=== PATIENT | female | born 2005 | race Caucasian/White ===

== ENCOUNTER 2024-04-18 20:31 | Emergency (ER) | payer BC, SELFPAY ==
[2024-04-18 20:37] VITALS: BP 124/71; PULSE 83; TEMP 36.9; O2SAT 98; BMI 35.4
[2024-04-18 20:55] LABS: Bilirubin Urine NEGATIVE (NEGATIVE); Blood Urine LARGE (NEGATIVE); Clarity Urine CLEAR (CLEAR); Color Urine YELLOW (YELLOW); Glucose Urine UA NEGATIVE (NEGATIVE); Ketones Urine 15 mg/dL (NEGATIVE); Leukocyte Esterase Urine SMALL (NEGATIVE); Nitrite Urine NEGATIVE (NEGATIVE); Protein Urine 30 mg/dL (NEG/TRACE); Specific Gravity Urine >=1.030 (1.005-1.025); Urobilinogen Urine 0.2 EU/dL (0.2-1.0); pH Urine 5.5 (5.0-9.0)
[2024-04-18 21:02] LABS: Bacteria Urine MODERATE #/HPF (NONE SEEN); Cast Seen? NONE SEEN #/LPF (NONE SEEN); Crystals Seen? None Seen #/HPF (None Seen); Mucus Urine TRACE (NONE SEEN); RBC Urine 20-50 #/HPF (0-2); Squamous Epithelial Cell Urine MANY #/LPF (NONE/RARE); Urine Culture Indicated YES
--- NOTE | 2024-04-18 21:17 | ED_ITS ---
HPI - Female Genitourinary General Chief complaint: Urogenital-Female Stated complaint: UTI, 18-weeks Time Seen by Provider: 04/18/24 20:33 Source: patient Mode of arrival: walk-in Limitations: no limitations History of Present Illness HPI Narrative: 18-year-old female presents for pain on urination and pressure in her bladder. She states she is 18 weeks and she has had this her entire . She has not been previously. No gross hematuria or unusual back pain. She states every time she goes to the telephone answering service operator's office they find a UTI and they put her on an antibiotic. She is not on 1 now. No fever. Related Data Home Medications ?Medication ?Instructions ?Recorded ?Confirmed aspirin 81 mg capsule 81 mg PO DAILY 04/18/24 04/18/24 Previous Rx's ?Medication ?Instructions ?Recorded nitrofurantoin 100 mg PO BID 7 days #14 caps 04/18/24 monohydrate/macrocrystals 100 mg capsule (Macrobid) Allergies Allergy/AdvReac Type Severity Reaction Status Date / Time No Known Drug Allergies Allergy Verified 04/18/24 20:42 Review of Systems ROS Narrative A ten point review of systems is negative except as noted above. PFSH PFSH Social History Little interest or pleasure in doing things: not at all Feeling down, depressed, or hopeless: not at all Exam Narrative Exam Narrative: Nurses note and vital signs reviewed and patient is not hypoxic. General: The patient appears well and in no apparent distress. Patient is resting comfortably on cart. Skin: Warm, dry, no pallor noted. There is no rash noted. Head: Normocephalic, atraumatic Eye: Normal conjunctiva, no drainage Ears, Nose, Mouth, and Throat: oral mucosa is moist. Nares patent. Cardiovascular: Regular Rate and Rhythm Respiratory: Patient is in no distress, no accessory muscle use, lungs are clear to auscultation, no wheezing, rales or rhonchi Back: non-tender, no CVA tenderness bilaterally to percussion. GI: Gravid nontender Musculoskeletal: The patient has no evidence of calf tenderness, no pitting edema, symmetrical pulses noted bilaterally Neurological: A&O, normal speech Psychiatric: Cooperative Constitutional Vital Signs, click to edit/add: Last Vital Signs Temp 98.5 F 04/18/24 20:37 Pulse 83 04/18/24 20:37 Resp 18 04/18/24 20:37 BP 124/71 04/18/24 20:37 Pulse Ox 98 04/18/24 20:37 O2 Del Method Room Air 04/18/24 20:37 Course Vital Signs Vital signs: Vital Signs Temperature 98.5 F 04/18/24 20:37 Pulse Rate 83 04/18/24 20:37 Respiratory Rate 18 04/18/24 20:37 Blood Pressure 124/71 04/18/24 20:37 Pulse Oximetry 98 04/18/24 20:37 Oxygen Delivery Method Room Air 04/18/24 20:37 Temperature 98.5 F 04/18/24 20:37 Pulse Rate 83 04/18/24 20:37 Respiratory Rate 18 04/18/24 20:37 Blood Pressure 124/71 04/18/24 20:37 Pulse Oximetry 98 04/18/24 20:37 Oxygen Delivery Method Room Air 04/18/24 20:37 MDM - Female Genitourinary MDM Narrative Medical decision making narrative: Urinalysis suggest UTI and culture is ordered. She is recently been on Keflex and she was started on Macrobid here and prescribed same. The importance of following up with her behavioral health tech was discussed. No evidence of pyelonephritis. Differential Diagnosis Differential diagnosis: Likely urinary tract infection and other (Cystitis, pyelonephritis) Lab Data Attestation: I reviewed the patient's lab results. Labs: Lab Results 04/18/24 Range/Units 20:50 Urine Color Yellow (YELLOW) Urine Clarity Clear (CLEAR) Urine pH 5.5 (5.0-9.0) Ur Specific [place] >=1.030 A (1.005-1.025) Urine Protein 30 A (NEG/TRACE) mg/dL Urine Glucose (UA) Negative (NEGATIVE) mg/dL Urine Ketones 15 A (NEGATIVE) mg/dL Urine Occult Blood Large A (NEGATIVE) Urine Nitrite Negative (NEGATIVE) Urine Bilirubin Negative (NEGATIVE) Urine Urobilinogen 0.2 (0.2-1.0) EU/dL Ur Leukocyte Esterase Small A (NEGATIVE) Urine RBC 20-50 A (0-2) #/HPF Urine WBC 2-5 A (NONE SEEN) #/HPF Ur Squamous Epith Cells Many A (NONE/RARE) #/LPF Urine Crystals None seen (None Seen) #/HPF Urine Bacteria Moderate A (NONE SEEN) #/HPF Urine Casts None seen (NONE SEEN) #/LPF Urine Mucus Trace A (NONE SEEN) Ur Culture Indicated? Yes Discharge Plan Discharge Chief Complaint: Urogenital-Female Clinical Impression: Urinary tract infection Patient Disposition: Home, Self-Care Time of Disposition Decision: 21:20 Condition: Good Mode of Transportation: Private Vehicle Prescriptions / Home Meds: New nitrofurantoin monohyd/m-cryst [Macrobid] 100 mg capsule 100 mg PO BID 7 Days Qty: 14 0RF Rx Instructions: must administer with a meal/food No Action aspirin 81 mg capsule 81 mg PO DAILY Print Language: Dutch Instructions: Urinary Tract Infection in (ED) Referrals: BENTON FORD [Primary Care Provider] - 1 week
[2024-04-18] MEDS: NITROFURANTOIN MONOHYD/MAC-CRST 100 MG CAPSULE PO (21:30)
== END 2024-04-18 21:31 | disposition home or self-care (01) ==
PROVIDERS: Emergency Provider Emergency Medicine; PCP Family Medicine
DX: O23.42 Unspecified infection of urinary tract in pregnancy, second trimester (principal); N39.0 Urinary tract infection, site not specified; Z3A.18 18 weeks gestation of pregnancy
CPT/HCPCS: 81001; 87086; 99283